=== PATIENT | female | born 1985 | race Caucasian/White ===

== ENCOUNTER 2018-10-19 16:45 | Inpatient (IN) ==
[2018-10-19] MEDS ORDERED: OXYTOCIN 30 UNITS/500 ML BAG IV PRN (17:43)
[2018-10-19] MEDS ORDERED: LACTATED RINGER'S 1,000 ML IV PRN (17:43)
[2018-10-19 18:08] LABS: Hematocrit (blood only) 36.3 % (37-47); Hemoglobin 12.1 g/dL (12.0-16.0); Mean Corpuscular Volume 86.2 fL (80-100); Mean Platelet Volume 9.4 fL (7.4-10.4); Platelet Count 206 K/uL (130-400); RDW Standard Deviation 47.4 fL (36.4-46.3); Red Blood Count 4.21 M/uL (4.2-5.4); White Blood Count 9.84 K/uL (4.8-10.8)
[2018-10-19 18:15] LABS: Mean Corpuscular Hgb Conc 33.3 g/dL (32-36)
[2018-10-20] MEDS ORDERED: IBUPROFEN 600 MG TAB PO PRN (00:57)
[2018-10-20] MEDS ORDERED: OXYCODONE/ACETAMINOPHEN 5mg/325mg TAB PO PRN (00:57)
[2018-10-20] MEDS ORDERED: SUPERCREAM 0.870% 15 GM JAR EXT PRN (00:57)
[2018-10-20] MEDS ORDERED: BISACODYL 10 MG SUPP PR PRN (00:57)
[2018-10-20] MEDS ORDERED: DIPHTHERIA/TETANUS/PERTUSSIS 0.5 ML SYR/VIAL IM ONE (00:57)
[2018-10-20] MEDS ORDERED: ACETAMINOPHEN 325 MG TAB PO PRN (00:57)
[2018-10-20] MEDS ORDERED: HYDROCORTISONE ACETATE 25 MG SUPP PR PRN (00:57)
[2018-10-20] MEDS ORDERED: ACETAMINOPHEN W/CODEINE #3 1 TAB PO PRN (00:57)
[2018-10-20] MEDS ORDERED: BENZOCAINE 20% AER SPR 82.5 GM CAN EXT PRN (00:57)
[2018-10-20] MEDS ORDERED: OXYTOCIN 30 UNITS/500 ML BAG IV PRN (00:57)
--- NOTE | 2018-10-20 07:57 | Delivery Summary ---
DATE OF OPERATION: 10/19/2018 DELIVERY NOTE She is a 6, para 5, 2 previous miscarriages. 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 Her obstetric history was noncontributory. Her due date was 10/16/2018 by ultrasound. Group B strep negative, blood type is A positive, rubella immune. Came in in spontaneous labor. Cervix was actively changing. Eventually her membranes ruptured spontaneously at about 8 cm. Fluid was clear. She went to full dilatation, pushed out a live via direct occiput anterior position over an intact perineum. Infant was suctioned through the mouth and the nose. Cord was clamped, cut by the father. Cord blood was taken. With IV Pitocin running, the placenta was removed intact. There was a superficial laceration of the right labia minora. It was bleeding. This area was infiltrated with local and then sutured with a running 3-0 chromic. Following this, vag exam including rectovaginal examination revealed no hematoma formation or sponges in the vagina. Estimated blood loss was 200 mL. A 1 and 5 minute Apgars were good, deferred to the nurses, and patient was in good condition with hemostasis adequate. NIKOLAY
[2018-10-20] MEDS: PRENATAL VITAMIN 1 TAB PO SCH (08:48)
[2018-10-20] MEDS: DOCUSATE SODIUM 100 MG CAP PO SCH ×2 (08:48→20:30)
[2018-10-20] MEDS: FERROUS SULFATE 325 MG TAB PO SCH (08:48)
[2018-10-20] MEDS ORDERED: BISACODYL 5 MG TABEC PO SCH (20:00)
[2018-10-21 06:30] LABS: Hematocrit (blood only) 35.2 % (37-47); Hemoglobin 11.9 g/dL (12.0-16.0); Mean Corpuscular Hgb Conc 33.8 g/dL (32-36); Mean Corpuscular Volume 86.1 fL (80-100); Mean Platelet Volume 9.5 fL (7.4-10.4); Platelet Count 174 K/uL (130-400); RDW Standard Deviation 46.9 fL (36.4-46.3); Red Blood Count 4.09 M/uL (4.2-5.4); White Blood Count 10.76 K/uL (4.8-10.8)
--- NOTE | 2018-10-21 07:31 | Obstetrical Progress Note ---
Date of Service October 21, 2018 Physical Exam Physical Exam: abdomen soft and non tender vaginal bleeding scant to moderate hgb 11.9 no calf tenderness ambulating well Results & Data Vital Signs (Past 12 Hours) Vital Signs Temp Pulse Resp BP Pulse Ox 10/20/18 23:45 36.5 C 68 16 113/76 97 10/20/18 20:30 36.5 C 64 20 134/92 97
[2018-10-21] MEDS: PRENATAL VITAMIN 1 TAB PO SCH (08:38)
[2018-10-21] MEDS: DOCUSATE SODIUM 100 MG CAP PO SCH (08:38)
[2018-10-21] MEDS: FERROUS SULFATE 325 MG TAB PO SCH (08:38)
== END 2018-10-21 14:38 | disposition home or self-care (01) | DRG 807 ==
LOC: OPB 16:45 → 4S1 16:52 → 4S2 10-20 04:19

== ENCOUNTER 2022-09-01 21:41 | Observation (INO) ==
[2022-09-02] MEDS ORDERED: OXYTOCIN 30 UNITS/500 ML BAG IV PRN (01:48)
[2022-09-02] MEDS ORDERED: LACTATED RINGER'S 1,000 ML IV PRN (01:48)
[2022-09-02] MEDS ORDERED: LIDOCAINE 1% LOCAL 20 ML VIAL INFIL PRN (01:48)
--- NOTE | 2022-09-02 01:52 | History & Physical Report ---
Date of Service September 02, 2022 Assessment & Plan (1) Supervision of elderly multigravida: Plan admit,iv, labs. pt offered arom and pitocin and declines both. fhts categ 1. discussed with pt and partner use of uterotonics after delivery to control bleeding and her risk of pp bleeding, grandmultip. she verbalized understanding. History of Present Illness Chief Complaint: irregular ctx. Primary Care Provider: NO PCP 37yo at 40wks ega who presents to L&D with above ctx. She noted ctx q16min at home and called. She states that this is how her labors are. On arrival ctx were q10min and now about q7-8min. Cx changed from 3-4cm and agreed to be admitted in labor. PNC c/b 1. grand multip 2. ama PNL rh pos, ri, gbs neg OBH: x 5, one home delivery, sab x 1 GYNH: nl paps, no stds. 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 current occupational status: unemployed Other Information That Helps Us Care for You: No Feels Safe at Home: Yes Safety Concerns: Feels Safe At This Time Assistive Devices: None Review of Systems as per Subjective / HPI Physical Exam Constitutional: WD/WN, vitals as above Respiratory: normal respiratory effort, lungs clear to auscultation Cardiovascular: Rate/Rhythm: regular rate and regular rhythm Gastrointestinal (Abdomen): soft gravid nt efw 7-8# Musculoskeletal: no edema nontender calves Neurologic: grossly normal Psychiatric: A+Ox3, euthymic affect Genitourinary: Manual OB Exam: + cervical dilation (per nurse) 4 cm and + cervical effacement 50% OB Exam Monitor Tracing: + external FHT monitor used, + external uterine monitor used (q7min), + category I and + normal FHT variability Results & Data Vital Signs (Past 12 Hours) Vital Signs Temp Pulse Resp BP 09/02/22 01:23 80 18 128/85 09/02/22 01:14 71 133/91 09/02/22 01:01 73 161/91 H 09/02/22 01:02 68 141/95 H 09/01/22 23:24 71 128/81 09/01/22 22:15 73 130/88 09/01/22 22:07 77 130/94 09/01/22 21:56 98.2 F 67 18 134/91 Coding Level of Care Code None Diagnoses Supervision of elderly multigravida O09.529
[2022-09-02] MEDS ORDERED: ceFAZolin 2000MG 2,000 MG/15 ML SYR IV ONE (02:00)
[2022-09-02 02:28] LABS: Hematocrit (blood only) 34.8 % (37.0-47.0); Hemoglobin 11.9 g/dl (12.0-16.0); Mean Corpuscular Hemoglobin 29.3 pg (25.0-34.0); Mean Corpuscular Hgb Conc 34.2 g/dL (32.0-36.0); Mean Corpuscular Volume 85.7 fL (80.0-100.0); Mean Platelet Volume 9.8 fL (9.4-12.4); Platelet Count 184 K/uL (130-400); RDW Coefficient of Variation 14.6 % (11.5-14.5); RDW Standard Deviation 45.2 fL (36.4-46.3); Red Blood Count 4.06 M/uL (4.20-5.40); White Blood Count 8.29 K/ul (4.8-10.8)
[2022-09-02 02:46] LABS: Albumin Globulin Ratio 1.2 (0.9-2); Albumin Level 3.6 gm/dl (3.4-5.0); BUN Creatinine Ratio 13.1 (10-20); Bilirubin Direct 0.1 mg/dl (0-0.2); Bilirubin,Total 0.5 mg/dl (0.2-1.0); Calcium 8.6 mg/dl (8.6-10.3); Creatinine Clr Calc Pharmacy 147.7 ml/min; Est GFR (African American) 133.3 ml/min; Globulin 3.1 gm/dl (2.5-4.0); Potassium 3.7 mmol/L (3.5-5.1); Total Protein 6.7 gm/dl (6.0-8.3)
--- NOTE | 2022-09-02 07:42 | Labor Progress Brief Note ---
Date of Service September 02, 2022 Subjective feels ctx have spaced out. Assessment & Plan (1) Supervision of elderly multigravida: (2) False labor after 37 completed weeks of gestation: Plan pt without cx change. given her grandmultip status and concern for rapid delivery, offered her induction with arom, or pit or both. She feels ctx are less intense and does not want either option, opts to go home. call with labor s/sx. she is aware of risk of delivery out of hospital but she still refuses to have intervention. will dc iv and dc home. fhts categ 1. nst reactive. During her stay >75min spent face to face and non face to face and documentation. Admission and Anticipated Discharge Date Admission Date: September 02, 2022 Physical Exam Constitutional: WD/WN, vitals as above Genitourinary: Manual OB Exam: + cervical dilation 4 cm, + cervical effacement 50% and + station -2 OB Exam Monitor Tracing: + external FHT monitor used, + external uterine monitor used (q10min), + category I (reactive nst) and + normal FHT variability Results & Data Vital Signs (Past 12 Hours) Vital Signs Temp Pulse Resp BP 09/02/22 05:25 75 126/82 09/02/22 02:00 18 09/02/22 02:00 98.4 F 18 09/02/22 01:23 80 18 128/85 09/02/22 01:14 71 133/91 09/02/22 01:01 73 161/91 H 09/02/22 01:02 68 141/95 H 09/01/22 23:24 71 128/81 09/01/22 22:15 73 130/88 09/01/22 22:07 77 130/94 09/01/22 21:56 98.2 F 67 18 134/91 Coding Level of Care Code 61081 INT INP/OBS CARE 3/75MIN Diagnoses Supervision of elderly multigravida O09.529 False labor after 37 completed weeks of gestation O47.1 CPT Codes Misx Procedure Codes - 55769 NST: 27754 NST ([id number]) SIDE GLUER Miscellaneous Codes Misx Procedure Codes 79459 NST
--- NOTE | 2022-09-05 11:46 | Discharge Summary ---
Date of Service Date of admission: September 02, 2022 Date of discharge: August Admission HPI Per Admitting Provider 37yo at 40wks jocelinraymond who presents to L&D with above ctx. She noted ctx q16min at home and called. She states that this is how her labors are. On arrival ctx were q10min and now about q7-8min. Cx changed from 3to 4cm and agreed to be admitted in labor. PNC c/b 1. grand multip 2. ama PNL rh pos, ri, gbs neg OBH: x 5, one home delivery, sab x 1 GYNH: nl paps, no stds. Hospital Course (1) False labor after 37 completed weeks of gestation: The patient agreed to be admitted but after >8hrs no cervical change noted and she felt contractions were less strong, they were also more spaced out. Given her story of her labors, offered her to stay and have arom or pitocin as I suspected likely with these interventions. Discussed option of going home but suspect high for home . She elected latter after counseling. Did not want to stay in hospital for induction. She was discharged home, with instructions to call when she felt labor returning or rom, as I suspected with rom, could be fast. Coding Level of Care Code None Diagnoses False labor after 37 completed weeks of gestation O47.1
== END 2022-09-02 07:15 | disposition home or self-care (01) | DRG 833 ==
LOC: OPB 21:41 → 4S1 21:51 → INTOOBSV 09-02 01:48

== ENCOUNTER 2022-09-02 13:55 | Inpatient (IN) ==
--- NOTE | 2022-09-02 14:27 | History & Physical Report ---
Date of Service September 02, 2022 Assessment & Plan (1) care and examination: Plan: Patient evaluated after arrival. She appears to be stable. Since vitals are stable and she had labs performed during admisson last night - will plan to draw H/H in morning. Admission and Anticipated Discharge Date Admission Date: September 02, 2022 History of Present Illness Chief Complaint: delivery at home Primary Care Provider: STEPHANIA PCP 37yo @ 40 02/14, came to hospital after delivering baby at home. She states baby was born just before noon, placenta delivered by shortly after. She took a shower and then came to the hospital for evaluation. She was at L&D last night, was admitted, declined offer of artificial rupture of membranes and preferred to go home rather than induce labor. She then progressed quickly at home and delivered before she was able to come back. Reports minimal bleeding at home. 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 current occupational status: unemployed Other Information That Helps Us Care for You: No Feels Safe at Home: Yes Safety Concerns: Feels Safe At This Time Assistive Devices: None Review of Systems All systems reviewed & are unremarkable except as noted in HPI & below Physical Exam Physical Exam: Perineum evaluated, intact. Normal lochia. Placenta examined, appears complete. Constitutional: WD/WN, vitals as above Respiratory: normal respiratory effort, lungs clear to auscultation no respiratory distress Cardiovascular: Rate/Rhythm: regular rate and regular rhythm Gastrointestinal (Abdomen): Inspection/Auscultation: abdomen normal to inspection Percussion/Palpation: abdomen soft; abdomen nontender Fundus firm, at umbilicus. Skin: no rashes, warm and dry Psychiatric: A+Ox3, euthymic affect Results & Data Vital Signs (Past 12 Hours) Vital Signs Temp Pulse Resp BP 09/02/22 14:22 67 128/95 09/02/22 14:06 70 120/78 09/02/22 14:03 37.0 C 18 Coding Level of Care Code None Diagnoses care and examination Z39.2
[2022-09-02] MEDS ORDERED: ACETAMINOPHEN 325 MG TAB PO PRN (14:33)
[2022-09-02] MEDS ORDERED: bisacodyL 10 MG SUPP PR PRN (14:33)
[2022-09-02] MEDS ORDERED: BENZOCAINE 20% SPRY 85 APPLN/85 GM CAN EXT PRN (14:33)
[2022-09-02] MEDS ORDERED: oxyCODONE/ACETAMINOPHEN 5mg/325mg TAB PO PRN (14:33)
[2022-09-02] MEDS ORDERED: DIPHTHERIA/TETANUS/PERTUSSIS Vaccine (Tdap, Age 7+yrs) 0.5mL SYR/VL IM ONE (14:33)
[2022-09-02] MEDS ORDERED: OXYTOCIN 30 UNITS/500 ML BAG IV PRN (14:33)
[2022-09-02] MEDS ORDERED: IBUPROFEN 600 MG TAB PO PRN (14:33)
[2022-09-02] MEDS ORDERED: HYDROCORTISONE ACETATE 25 MG SUPP PR PRN (14:33)
[2022-09-02] MEDS: DOCUSATE SODIUM 100 MG CAP PO SCH (20:59)
--- NOTE | 2022-09-03 06:44 | Obstetrical Progress Note ---
Date of Service <Monica Lorenzo MD - Last Filed: 09/03/22 08:16> September 03, 2022 Assessment & Plan <Monica Lorenzo MD - Last Filed: 09/03/22 08:16> (1) Spontaneous vaginal delivery: Patient with the above mentioned history and findings was evaluated at bedside and found awake, alert, oriented in all spheres, afebrile, and in no acute distress. Vital signs showed no fever and blood pressures remained stable and has remained without symptoms of severity (e.g. vision changes, headaches, oliguria, etc.). Her pain intensity is rated as a 2 in a 10-point scale, and is adequately controlled with analgesia. Her blood type is A positive and hemoglobin is adequate at 12.1 g/dL. Serologies are negative for GBS and patient is Rubella immune. Overall, patient is doing well clinically. Therefore, will encourage ambulation as tolerated and will resume regular diet. Will continue monitoring pain levels and management with Motrin PRN. Patient is encouraged to breastfeed and to notify changes in normal lochia such as excessive bleeding (using more than 1 pad per hour), foul smell, or purulent appearance. Patient was counselled on discharge instructions. She is to make an appointment with her OB for 6 weeks after discharge for follow up evaluation. All questions were answered. <Cinthia Leon DO - Last Filed: 09/03/22 08:38> (1) Spontaneous vaginal delivery: Subjective <Monica Lorenzo MD - Last Filed: 09/03/22 08:16> Akosua is a 37 y/o female who is now PPD # 1 following spontaneous vaginal delivery done at her home at 40 1/7 weeks. She delivered her baby and placenta at her home and later arrived to [facility] to be evaluated. Reports feeling well overall this morning. Refers mild abdominal cramping & 2/10 pain well managed on analgesics. Voiding spontaneously without difficulty. Tolerating meals overnight and able to ambulate some. She is passing gas but has not had a bowel movement yet. Some persistent lochia with some improvement this morning. Breast feeding. Constitutional: no fever, no chills or no sweats Denies shortness of breath or difficulty breathing Cardiovascular: no chest pain or no palpitations Breast: no breast pain Genitourinary (female): no dysuria Neurologic: no headache(s) Denies changes in vision Physical Exam <Monica Lorenzo MD - Last Filed: 09/03/22 08:16> General: Alert. Oriented to person, time, and place. Afebrile. No acute distress. Eyes: pupils equal and reactive to light bilaterally, extraocular movements intact. Cardiac: Regular rate and rhythm, no murmurs/rubs/gallops. Respiratory: Clear to auscultation bilaterally a/p, no wheezes/rales/rhonchi. No increased work of breathing. Symmetrical chest rise. No respiratory distress. Abdomen: Soft, nontender, nondistended. Bowel sounds present. Uterus: Uterine fundus firm, non-tender, and palpable at the umbilicus. Lower Extremities: No lower extremity edema or swelling. No deep calf pain. Miller's negative bilaterally. Psych: Euthymic affect. Mood and affect congruence. Regular speech rate and content. Results & Data <Monica Lorenzo MD - Last Filed: 09/03/22 08:16> Vital Signs (Past 12 Hours) Vital Signs Temp Pulse Resp BP BP Pulse Ox O2 Del Method 09/03/22 03:45 36.6 C 67 16 131/86 96 Room Air 09/03/22 00:15 36.7 C 67 18 127/78 96 Room Air 09/02/22 19:30 36.7 C 73 18 120/79 97 Room Air <Cinthia Leon DO - Last Filed: 09/03/22 08:38> Co-Signing Physician Notes Resident Physician Supervision Note: I was present with Dr. Lorenzo during the history and exam. I discussed the case with the resident and agree with the findings and plan as documented in the note. Any exceptions or clarifications are listed here: PPD#1 doing well. Desires DC home. DC instructions reviewed, followup 6w PP. Documented By: Cinthia Leon DO Resident Activity Tracking <Monica Lorenzo MD - Last Filed: 09/03/22 08:16> Resident Involvement: Resident Care Provided Care Provided: OB Delivery
[2022-09-03] MEDS ORDERED: PRENATAL VITAMIN 1 TAB PO SCH (08:00)
[2022-09-03 08:07] LABS: Hematocrit (blood only) 35.3 % (37.0-47.0); Hemoglobin 12.1 g/dl (12.0-16.0)
[2022-09-03] MEDS: DOCUSATE SODIUM 100 MG CAP PO SCH (08:56)
[2022-09-03] MEDS ORDERED: bisacodyL 5 MG TABEC PO SCH (20:00)
== END 2022-09-03 13:52 | disposition home or self-care (01) | DRG 776 ==
LOC: 4S1 13:55 → 4E2 15:23
DX: Z39.0 Encounter for care and examination of mother immediately after delivery